=== PATIENT | male | born 1935 | race Caucasian/White ===

== ENCOUNTER 2020-01-25 16:49 | Emergency (ER) | payer MEDICARE ==
[~2020-01-25] VITALS: Ht 180.3 cm; Wt 70.0 kg
[~2020-01-25 16:49] MED LIST: AMOXIL500 M1 OR; CORDARONE200 MG OR; COUMADIN3 MG OR; COUMADIN5 MG OR; CRESTOR10 MG OR; CRESTOR5 MG OR; EXFORGE OR; FOLIC ACID20 MG OR; FUROSEMIDE80 MG OR; K-LOR20 MEQ OR; LASIX20 MG OR; LIPITOR20 MG PO; LOPRESSOR12.5 MG OR; LOSARTAN POT100 MG PO; METOPROL TAR50 MG PO; RHEUMATREX2.5 MG OR; WARFARIN5 MG PO
[2020-01-25 18:20] VITALS: BP 171/86
== END 2020-01-25 18:20 | disposition home or self-care (01) ==
LOC: ED 16:49
DX: U07.1 COVID-19 (principal); R53.83 Other fatigue; I10 Essential (primary) hypertension; E78.5 Hyperlipidemia, unspecified